=== PATIENT | female | born 1960 | race African-American/Black ===

== ENCOUNTER 2017-09-27 19:57 | Emergency (ER) | payer OTHER ==
[~2017-09-27] VITALS: Ht 175.3 cm; Wt 85.3 kg
[2017-09-27 20:14] VITALS: BP 156/97
[2017-09-27] MEDS ORDERED: DICL100G18 TP (23:00)
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
== END 2017-09-27 23:05 | disposition home or self-care (01) ==
LOC: ER 19:57
DX: S60.221A Contusion of right hand, initial encounter (principal); S20.212A Contusion of left front wall of thorax, initial encounter; I25.10 Atherosclerotic heart disease of native coronary artery without angina pectoris; Z88.5 Allergy status to narcotic agent; Z88.8 Allergy status to other drugs, medicaments and biological substances; Z88.6 Allergy status to analgesic agent; Z91.041 Radiographic dye allergy status; V40.5XXA Car driver injured in collision with pedestrian or animal in traffic accident, initial encounter; Y93.89 Activity, other specified; Y99.8 Other external cause status; Y92.89 Other specified places as the place of occurrence of the external cause
CPT/HCPCS: 71020; 73130; 99284

== ENCOUNTER → 2021-10-30 | Outpatient (CLI) | payer OTHER ==
[~2021-10-30] MED LIST: DICL100G18 TP
--- NOTE | 2021-11-01 14:44 | RAD ---
Bilateral digital screening mammograms: Reason for examination: Routine screening. Comparison: Mammogram from 09/23/2018. Interpretation was made with the benefit of CAD. FINDINGS: Breast density: Category C. There is heterogeneously dense fibroglandular tissue, which may obscure s mall masses. No suspicious breast mass, malignant appearing calcifications, or evidence of architectural distortio n is seen. IMPRESSION: No evidence of malignancy. Assessment: BI-RADS 1. Negative. Recommendation: Routine screening mammograms. Your patient's mammogram demonstrates that she has dense breast tissue (breast density category C or D), which could hide abnormalities, and if she has other risk factors for breast cancer that have bee n identified, she might benefit from supplemental screening tests that may be suggested by you as her ordering physician. Dense breast tissue, in and of itself, is a relatively common condition. Therefo re, this information is not provided to cause undue concern, but rather to raise your awareness and t o promote discussion with your patient regarding the presence of other risk factors, in addition to d ense breast tissue. This patient's information has been entered into a reminder system for the patient to be notified wit h the results of her examination by mail and a target date for the next mammogram. A reminder letter will be generated. Electronically signed by: Criss Perla MD (11/01/2021 2:41 PM) [id number]
== END ==
LOC: MAMMO 09:29
PROVIDERS: ATTEND Nurse Practitioner Family
DX: Z12.31 Encounter for screening mammogram for malignant neoplasm of breast (principal)
CPT/HCPCS: 77067